=== PATIENT | female | born 1980 | race Two or more races ===

== ENCOUNTER 2021-12-10 07:55 | Day surgery (SDC) | payer OTHER ==
[2021-12-10] MEDS ORDERED: CILOXAN5 ML OTIC (13:27)
[2021-12-10] MEDS ORDERED: CEPHALEXIN500 MG PO (13:28)
== END 2021-12-10 18:00 | disposition home or self-care (01) ==
LOC: CIR.AMB 07:55
PROVIDERS: ATTEND Otolaryngology Otology & Neurotology
DX: H90.12 Conductive hearing loss, unilateral, left ear, with unrestricted hearing on the contralateral side (principal); H72.02 Central perforation of tympanic membrane, left ear; H74.22 Discontinuity and dislocation of left ear ossicles; I10 Essential (primary) hypertension; I34.1 Nonrheumatic mitral (valve) prolapse; G40.802 Other epilepsy, not intractable, without status epilepticus; Z20.822 Contact with and (suspected) exposure to COVID-19